=== PATIENT | female | born 1930 | race Caucasian/White ===

== ENCOUNTER 2019-11-26 12:00 | Emergency (ER) | payer MEDICARE ==
[~2019-11-26] VITALS: Ht 160 cm; Wt 53.0 kg
[~2019-11-26 12:00] MED LIST: ACET500T56 PO; ALEN70TA60 PO; CEFD300C PO; DOCU100C28 PO; DONE10TA7 PO; FURO-69 PO; MELA3TAB4 PO; METO25TA4 PO; MINE473L5 TP; MULT-735 PO; POTA20TA4 PO; SIMV10TA15 PO; WARF-31 PO; [UNRECOGNIZED DRUG - CODE] TP
[2019-11-26 12:22] LABS: BASO # 0.1 x10^3/uL (0.0-0.2); BASO % 1 % (0-3); EOS % 0 % (0-3); HEMATOCRIT 43.7 % (36.0-47.0); HEMOGLOBIN 14.7 g/dL (12.0-15.5); LYMPH # 1.2 x10^3/uL (1.0-4.8); LYMPH % 12 % (24-48); MEAN CORPUSCULAR HEMOGLOBIN 31 pg (25-35); MEAN CORPUSCULAR HGB CONC 34 g/dL (31-37); MEAN CORPUSCULAR VOLUME 91 fL (79-100); MONO # 0.6 x10^3/uL (0.0-1.1); MONO % 6 % (0-9); NEUT # 8.3 x10^3/uL (1.8-7.7); NEUT % 82 % (31-73); PLATELET COUNT 230 x10^3/uL (140-400); RED BLOOD COUNT 4.83 x10^6/uL (3.50-5.40); RED CELL DISTRIBUTION WIDTH 14.3 % (11.5-14.5); WHITE BLOOD COUNT 10.2 x10^3/uL (4.0-11.0)
[2019-11-26 12:32] LABS: CALCIUM 10.5 mg/dL (8.5-10.1); CREATININE 0.9 mg/dL (0.6-1.0); GFR 59.2; POTASSIUM 4.3 mmol/L (3.5-5.1); PROTHROMBIN TIME PATIENT 28.7 SEC (11.7-14.0)
[2019-11-26 12:38] LABS: ALBUMIN 3.4 g/dL (3.4-5.0); ALBUMIN/GLOBULIN RATIO 1.1 (1.0-1.7); MAGNESIUM 2.4 mg/dL (1.8-2.4); TOTAL BILIRUBIN 1.5 mg/dL (0.2-1.0); TOTAL PROTEIN 6.5 g/dL (6.4-8.2)
--- NOTE | 2019-11-26 12:48 | EKG ---
[facility] [address] [place] [address] Test Date: 2019-11-26 Test Time: 12:05:32 Pat Name: NONI TITUS Department: Room: Gender: F [employer]: : 1930 Requested By: TARI CRANDALL Order Number: [id number] Reading MD: Measurements Intervals [place] Rate: 73 P: MA: QRS: 72 QRSD: 66 T: 115 QT: 376 QTc: 418 Interpretive Statements IRREGULAR RHYTHM, NO P-WAVE FOUND VENTRICULAR PREMATURE COMPLEX(ES) LOW LIMB LEAD VOLTAGE QRS(T) CONTOUR ABNORMALITY CONSISTENT WITH ANTEROSEPTAL INFARCT AGE UNDETERMINED ST & T ABNORMALITY, CONSIDER ANTEROLATERAL ISCHEMIA OR LEFT VENTRICULAR STRAIN T ABNORMALITY IN ANTERIOR LEADS ABNORMAL ECG RI6.01 No previous ECG available for comparison
--- NOTE | 2019-11-26 12:48 | RAD ---
EXAM: CT head and cervical spine without contrast INDICATION: CT head 08/21/2018 COMPARISON: Fell, altered mental status, on Coumadin TECHNIQUE: Axial CT imaging through the head without intravenous contrast. Coronal and sagittal reformats of the cervical spine were obtained. One or more of the following individualized dose reduction techniques were utilized for this examination: 1. Automated exposure control 2. Adjustment of the mA and/or kV according to patient size 3. Use of iterative reconstruction technique. FINDINGS: CT head: The ventricles and sulci are moderately enlarged, reflecting age-related volume loss. There is a moderate burden of periventricular and deep hypoattenuating white matter lesions. Agrawal-white matter differentiation is maintained. There is no intracranial hemorrhage, acute infarct, or mass lesion. Basal cisterns are clear. The skull and scalp are intact. Paranasal sinuses and mastoid air cells are clear. Globes and orbits are intact.. CT cervical spine: No acute fracture. Alignment is normal. The craniocervical junction and atlantoaxial interval are maintained. There is severe disc space narrowing at C5-C6. Moderate disc space narrowing at C4-C5 and C6-C7. Chronic appearing superior endplate irregularity of C6 and T3. There is multilevel facet arthrosis, greater on the left, and uncovertebral joint proliferation. Multilevel foraminal narrowing, greater on the left. No canal narrowing. There is a small disc bulge C2-C3 and C3-C4. Prevertebral soft tissues normal. There is a 1.1 cm hypodense thyroid nodule in the left thyroid lobe. The lung apices are clear. There are calcifications in the carotid bifurcations. IMPRESSION: 1. No acute intracranial abnormality or acute osseous abnormality of the cervical spine. 2. Moderate volume loss and white matter disease. 3. 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 Electronically signed by: Jannette Roque MD (11/26/2019 12:45 PM) [id number]
[2019-11-26] MEDS ORDERED: IV NORMAL SALINE 500ML BAG 500 ML IV ONE (13:30)
[2019-11-26 14:07] LABS: BILIRUBIN,URINE NEGATIVE (NEG); CLARITY,URINE CLOUDY; COLOR,URINE AMBER; NITRITE,URINE POSITIVE (NEG); PH,URINE 5.5 (<5.0-8.0); PROTEIN,URINE 30 mg/dL (NEG-TRACE)
[2019-11-26 14:13] LABS: AMORPHOUS SEDIMENT,UR PRESENT /HPF; BACTERIA,URINE MODERATE /HPF (0-FEW); RBC,URINE TNTC /HPF (0-2)
[2019-11-26] MEDS ORDERED: cefTRIAXone IV Push 1 GM VIAL. IVP ONE (14:45)
--- NOTE | 2019-11-26 14:59 | PHYS DOC ---
Past Medical History Past Medical History: A-Fib, Dementia, High Cholesterol, Hypertension Additional Past Medical Histor: osteoporosis Past Surgical History: No Surgical History Smoking Status: Unknown if ever smoked Alcohol Use: None Drug Use: None General Adult EDM: Chief Complaint: TRAUMA ALERT HPI: HPI: Patient is a 89 year old female who was brought here from care home after she was found facedown on the floor this morning. Patient is wheelchair-bound, she fell out of her wheelchair, hit her forehead on the ground. Patient is on blood thinner, Coumadin. Patient denies any chest pain, no abdominal pain, no back pain, no extremity pain. Patient is a DNR. Review of Systems: Review of Systems: Constitutional: Denies fever or chills. [] Eyes: Denies change in visual acuity. [] HENT: Denies nasal congestion or sore throat. [] Respiratory: Denies cough or shortness of breath. [] Cardiovascular: Denies chest pain or edema. [] GI: Denies abdominal pain, nausea, vomiting, bloody stools or diarrhea. [] : Denies dysuria. [] Musculoskeletal: Positive for skin abrasion on the forehead. Integument: positive skin abrasion, contusion Neurologic: Positive for headache, no focal weakness or numbness. Endocrine: Denies polyuria or polydipsia. [] Lymphatic: Denies swollen glands. [] Psychiatric: Denies depression or anxiety. [] Heart Score: Risk Factors: Risk Factors: DM, Current or recent (<one month) smoker, HTN, HLP, family history of CAD, obesity. Risk Scores: Score 0 - 3: 2.5% MACE over next 6 weeks - Discharge Home Score 4 - 6: 20.3% MACE over next 6 weeks - Admit for Clinical Observation Score 7 - 10: 72.7% MACE over next 6 weeks - Early Invasive Strategies Current Medications: Current Medications Medications (Trade) Dose Ordered Sig/Aria Start Time Stop Time Status Last Admin Dose Admin Ceftriaxone Sodium (Rocephin) 1 gm 1X ONCE 11/26/19 14:45 11/26/19 14:46 DC 11/26/19 14:47 1 GM Sodium Chloride 500 ml @ 500 mls/hr 1X ONCE 11/26/19 13:30 11/26/19 14:29 DC 11/26/19 13:36 500 MLS/HR Allergies: Allergies: Allergies Coded Allergies Type Severity Reaction Last Updated Verified Influenza Virus Vaccines Allergy Intermediate 08/25/18 Yes Physical Exam: PE: Constitutional: Well developed, well nourished, no acute distress, non-toxic appearance. [] HENT: Normocephalic, skin abrasion on left side forehead area, bilateral external ears normal, oropharynx moist, no oral exudates, nose normal. [] Eyes: PERRLA, EOMI, conjunctiva normal, no discharge. [] Neck: Normal range of motion, no tenderness, supple, no stridor. [] Cardiovascular:Heart rate regular rhythm, no murmur [] Lungs & Thorax: Bilateral breath sounds clear to auscultation [] Abdomen: Bowel sounds normal, soft, no tenderness, no masses, no pulsatile masses. [] Skin: Warm, dry, no erythema, no rash. [] Back: No tenderness, no CVA tenderness. [] Extremities: No tenderness, no cyanosis, no clubbing, ROM intact, no edema. [] Neurologic: Patient appeared somnolent, able to wake up to answer questions. Psychologic: Affect normal, judgement normal, mood normal. [] Current Patient Data: Labs: Laboratory Tests Test 11/26/19 12:07 11/26/19 13:54 White Blood Count 10.2 x10^3/uL (4.0-11.0) Red Blood Count 4.83 x10^6/uL (3.50-5.40) Hemoglobin 14.7 g/dL (12.0-15.5) Hematocrit 43.7 % (36.0-47.0) Mean Corpuscular Volume 91 fL (79-100) Mean Corpuscular Hemoglobin 31 pg (25-35) Mean Corpuscular Hemoglobin Concent 34 g/dL (31-37) Red Cell Distribution Width 14.3 % (11.5-14.5) Platelet Count 230 x10^3/uL (140-400) Neutrophils (%) (Auto) 82 % (31-73) H Lymphocytes (%) (Auto) 12 % (24-48) L Monocytes (%) (Auto) 6 % (0-9) Eosinophils (%) (Auto) 0 % (0-3) Basophils (%) (Auto) 1 % (0-3) Neutrophils # (Auto) 8.3 x10^3/uL (1.8-7.7) H Lymphocytes # (Auto) 1.2 x10^3/uL (1.0-4.8) Monocytes # (Auto) 0.6 x10^3/uL (0.0-1.1) Eosinophils # (Auto) 0.0 x10^3/uL (0.0-0.7) Basophils # (Auto) 0.1 x10^3/uL (0.0-0.2) Prothrombin Time 28.7 SEC (11.7-14.0) H Prothrombin Time INR 2.7 (0.8-1.1) H Activated Partial Thromboplast Time 36 SEC (24-38) Sodium Level 154 mmol/L (136-145) H Potassium Level 4.3 mmol/L (3.5-5.1) Chloride Level 119 mmol/L (98-107) H Carbon Dioxide Level 29 mmol/L (21-32) Anion Gap 6 (6-14) Blood Urea Nitrogen 27 mg/dL (7-20) H Creatinine 0.9 mg/dL (0.6-1.0) Estimated GFR (Cockcroft-Gault) 59.2 BUN/Creatinine Ratio 30 (6-20) H Glucose Level 146 mg/dL (70-99) H Calcium Level 10.5 mg/dL (8.5-10.1) H Magnesium Level 2.4 mg/dL (1.8-2.4) Total Bilirubin 1.5 mg/dL (0.2-1.0) H Aspartate Amino Transferase (AST) 40 U/L (15-37) H Alanine Aminotransferase (ALT) 18 U/L (14-59) Alkaline Phosphatase 64 U/L (46-116) Troponin I Quantitative 0.029 ng/mL (0.000-0.055) Total Protein 6.5 g/dL (6.4-8.2) Albumin 3.4 g/dL (3.4-5.0) Albumin/Globulin Ratio 1.1 (1.0-1.7) Urine Collection Type U cath Urine Color Arleen Urine Clarity Cloudy Urine pH 5.5 (<5.0-8.0) Urine Specific [place] 1.025 (1.000-1.030) Urine Protein 30 mg/dL (NEG-TRACE) Urine Glucose (UA) Negative mg/dL (NEG) Urine Ketones (Stick) Trace mg/dL (NEG) Urine Blood Large (NEG) Urine Nitrite Positive (NEG) Urine Bilirubin Negative (NEG) Urine Urobilinogen Dipstick 1.0 mg/dL (0.2 mg/dL) Urine Leukocyte Esterase Small (NEG) Urine RBC Tntc /HPF (0-2) Urine WBC 1-4 /HPF (0-4) Urine Squamous Epithelial Cells Few /LPF Urine Amorphous Sediment Present /HPF Urine Bacteria Moderate /HPF (0-FEW) Urine Mucus Mod /LPF Laboratory Tests 11/26/19 12:07 Laboratory Tests 11/26/19 12:07 Vital Signs: Vital Signs Date Time Temp Pulse Resp B/P (MAP) Pulse Ox O2 Delivery O2 Flow Rate FiO2 11/26/19 13:06 78 15 138/70 (92) 100 Room Air 11/26/19 12:06 97.7 97.7 EKG: EKG: EKG was done at 1205, heart rate 73 beats per minutes, atrial fibrillation. No ST segment elevation. Radiology/Procedures: Radiology/Procedures: [][facility] [address] [place] [address] IMAGING REPORT Signed PATIENT: NONI TITUS ACCOUNT: [id number] : 1930 LOCATION: ER AGE: 89 SEX: F EXAM STATUS: REG ER ORD. PHYSICIAN: TARI CRANDALL DO REASON: fell, AMS, ON COUMADIN PROCEDURE: CT HEAD AND CERVICAL SPINE WO EXAM: CT head and cervical spine without contrast INDICATION: CT head 08/21/2018 COMPARISON: Fell, altered mental status, on Coumadin TECHNIQUE: Axial CT imaging through the head without intravenous contrast. Coronal and sagittal reformats of the cervical spine were obtained. One or more of the following individualized dose reduction techniques were utilized for this examination: 1. Automated exposure control 2. Adjustment of the mA and/or kV according to patient size 3. Use of iterative reconstruction technique. FINDINGS: CT head: The ventricles and sulci are moderately enlarged, reflecting age-related volume loss. There is a moderate burden of periventricular and deep hypoattenuating white matter lesions. Agarwal-white matter differentiation is maintained. There is no intracranial hemorrhage, acute infarct, or mass lesion. Basal cisterns are clear. The skull and scalp are intact. Paranasal sinuses and mastoid air cells are clear. Globes and orbits are intact.. CT cervical spine: No acute fracture. Alignment is normal. The craniocervical junction and atlantoaxial interval are maintained. There is severe disc space narrowing at C5-C6. Moderate disc space narrowing at C4-C5 and C6-C7. Chronic appearing superior endplate irregularity of C6 and T3. There is multilevel facet arthrosis, greater on the left, and uncovertebral joint proliferation. Multilevel foraminal narrowing, greater on the left. No canal narrowing. There is a small disc bulge C2-C3 and C3-C4. Prevertebral soft tissues normal. There is a 1.1 cm hypodense thyroid nodule in the left thyroid lobe. The lung apices are clear. There are calcifications in the carotid bifurcations. IMPRESSION: 1. No acute intracranial abnormality or acute osseous abnormality of the cervical spine. 2. Moderate volume loss and white matter disease. 3. 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 Electronically signed by: Jannette Roque MD (11/26/2019 12:45 PM) [id number] DICTATED and SIGNED BY: JANNETTE ROQUE MD DATE: 11/26/19 1245 Course & Med Decision Making: Course & Med Decision Making Pertinent Labs and Imaging studies reviewed. (See chart for details) Patient is a 89-year-old female who fell out of the wheelchair this morning at the care home, CT scan of the head and C-spine did not show any acute problem. Patient was found to have UTI. Patient will be discharged back to care home with antibiotic. Dragon Disclaimer: Drageverardo Disclaimer: This electronic medical record was generated, in whole or in part, using a voice recognition dictation system. Departure Departure Impression: Primary Impression: UTI (urinary tract infection) Additional Impression: Head injury Disposition: 01 HOME, SELF-CARE Condition: STABLE Referrals: SHIKHA LAZCANO MD (PCP) FOLLOW UP WITH YOUR DOCTOR THIS WEEK Patient Instructions: Head Injury, Adult, Urinary Tract Infection Additional Instructions: Please follow-upThank you for visiting our Emergency Department. We appreciate you trusting us with your care. If any additional problems come up don't hesitate to return to visit us. Please follow up with your primary care provider so they can plan additional care if needed and know about the problem that you had. If symptoms worsen come back to the Emergency Department. Any concerning symptoms that start such as chest pain, shortness of air, weakness or numbness on one side of the body, running high fevers or any other concerning symptoms return to the ER. Scripts Sulfamethoxazole/Trimethoprim (BACTRIM DS TABLET) 1 Each Tablet 1 TAB PO BID for 7 Days, #14 TAB 0 Refills Prov: TARI CRANDALL DO 11/26/19 TARI CRANDALL DO Nov 26, 2019 14:59
[2019-11-26] MEDS ORDERED: SULF1TAB24 PO (15:08)
[2019-11-26 16:00] VITALS: BP 118/71
== END 2019-11-26 17:13 | disposition home or self-care (01) ==
LOC: ER 12:00
DX: S00.81XA Abrasion of other part of head, initial encounter (principal); N39.0 Urinary tract infection, site not specified; Z88.7 Allergy status to serum and vaccine; I48.91 Unspecified atrial fibrillation; E78.00 Pure hypercholesterolemia, unspecified; I10 Essential (primary) hypertension; F03.90 Unspecified dementia, unspecified severity, without behavioral disturbance, psychotic disturbance, mood disturbance, and anxiety; W05.0XXA Fall from non-moving wheelchair, initial encounter; Y93.89 Activity, other specified; Y92.128 Other place in nursing home as the place of occurrence of the external cause; Y99.8 Other external cause status
CPT/HCPCS: 36415; 70450; 72125; 80053; 81001; 83735; 84484; 85025; 85610; 85730; 87077; 87086; 87186; 93005; 96374; 99285; J0696; J7040; 51701